=== PATIENT | male | born 1980 | race Caucasian/White ===

== ENCOUNTER 2022-01-31 20:11 | Emergency (ER) | payer OTHER ==
[2022-01-31] MEDS ORDERED: CEPHALEXIN500 MG PO (21:20)
== END 2022-01-31 22:16 | disposition home or self-care (01) ==
LOC: FER 20:11
DX: S61.237A Puncture wound without foreign body of left little finger without damage to nail, initial encounter (principal); Z23 Encounter for immunization; W45.0XXA Nail entering through skin, initial encounter; Y92.71 Barn as the place of occurrence of the external cause
CPT/HCPCS: 73130; 90471; 90715